=== PATIENT | male | born 1950 | race Caucasian/White ===

== ENCOUNTER → 2017-06-14 | Outpatient (CLI) | payer MEDICARE, OTHER ==
[~2017-06-14] MED LIST: ASPI-482 PO; ATOR10TA60 PO; CALC500T13 PO; CHOL200044 PO; FEBU40TA PO; FURO20TA3 PO; LANS30CA PO; LISI10TA2 PO; METO25TA4 PO; MYCO500T3 PO; SPIR50TA2 PO; TACR0.5C2 PO; TACR0.5P MC; TRAM50TA PO; TRIA0.2567 PO
[2017-06-14 08:25] LABS: BASO % 1 % (0-3); EOS # 0.2 x10^3/uL (0.0-0.7); EOS % 4 % (0-3); HEMATOCRIT 40.7 % (39.0-53.0); HEMOGLOBIN 13.3 g/dL (13.0-17.5); LYMPH # 0.7 x10^3/uL (1.0-4.8); LYMPH % 16 % (24-48); MEAN CORPUSCULAR HEMOGLOBIN 28 pg (25-35); MEAN CORPUSCULAR HGB CONC 33 g/dL (31-37); MEAN CORPUSCULAR VOLUME 85 fL (79-100); MONO # 0.4 x10^3/uL (0.0-1.1); MONO % 10 % (0-9); NEUT # 3.2 x10^3uL (1.8-7.7); NEUT % 70 % (31-73); PLATELET COUNT 95 x10^3/uL (140-400); RED BLOOD COUNT 4.78 x10^6/uL (4.30-5.70); RED CELL DISTRIBUTION WIDTH 15.3 % (11.5-14.5); WHITE BLOOD COUNT 4.5 x10^3/uL (4.0-11.0)
[2017-06-14 08:26] LABS: CALCIUM 9.2 mg/dL (8.5-10.1); GFR 74.8; POTASSIUM 3.9 mmol/L (3.5-5.1)
== END | disposition home or self-care (01) ==
LOC: LAB 07:30
PROVIDERS: ATTEND Internal Medicine Cardiovascular Disease
DX: Z01.812 Encounter for preprocedural laboratory examination (principal); I73.9 Peripheral vascular disease, unspecified; R93.6 Abnormal findings on diagnostic imaging of limbs
CPT/HCPCS: 36415; 80048; 85025

== ENCOUNTER → 2018-04-04 | Outpatient (CLI) | payer MEDICARE, OTHER ==
[~2018-04-04] MED LIST changes: -SPIR50TA2 PO; +SPIR50TA4 PO
[2018-04-04 11:54] LABS: BASO % 1 % (0-3); EOS # 0.1 x10^3/uL (0.0-0.7); EOS % 2 % (0-3); HEMATOCRIT 43.6 % (39.0-53.0); HEMOGLOBIN 14.2 g/dL (13.0-17.5); LYMPH # 0.8 x10^3/uL (1.0-4.8); LYMPH % 14 % (24-48); MEAN CORPUSCULAR HEMOGLOBIN 27 pg (25-35); MEAN CORPUSCULAR HGB CONC 33 g/dL (31-37); MEAN CORPUSCULAR VOLUME 84 fL (79-100); MONO # 0.5 x10^3/uL (0.0-1.1); MONO % 9 % (0-9); NEUT # 4.4 x10^3uL (1.8-7.7); NEUT % 74 % (31-73); PLATELET COUNT 114 x10^3/uL (140-400); RED BLOOD COUNT 5.22 x10^6/uL (4.30-5.70); RED CELL DISTRIBUTION WIDTH 14.6 % (11.5-14.5); WHITE BLOOD COUNT 5.9 x10^3/uL (4.0-11.0)
[2018-04-04 12:08] LABS: ALBUMIN 3.5 g/dL (3.4-5.0); ALBUMIN/GLOBULIN RATIO 0.9 (1.0-1.7); CALCIUM 8.9 mg/dL (8.5-10.1); GFR 74.5; MAGNESIUM 1.6 mg/dL (1.8-2.4); PHOSPHORUS 3.4 mg/dL (2.6-4.7); TOTAL PROTEIN 7.4 g/dL (6.4-8.2)
== END | disposition home or self-care (01) ==
LOC: LAB 10:00
PROVIDERS: ATTEND Internal Medicine Gastroenterology
DX: Z48.23 Encounter for aftercare following liver transplant (principal); Z94.4 Liver transplant status; Z79.899 Other long term (current) drug therapy
CPT/HCPCS: 36415; 80053; 80197; 82977; 83735; 84100; 85025

== ENCOUNTER → 2018-05-23 | Outpatient (CLI) | payer MEDICARE, OTHER ==
[2018-05-23 12:23] LABS: BASO % 0 % (0-3); EOS # 0.1 x10^3/uL (0.0-0.7); EOS % 1 % (0-3); HEMATOCRIT 41.8 % (39.0-53.0); HEMOGLOBIN 13.7 g/dL (13.0-17.5); LYMPH # 0.8 x10^3/uL (1.0-4.8); LYMPH % 15 % (24-48); MEAN CORPUSCULAR HEMOGLOBIN 27 pg (25-35); MEAN CORPUSCULAR HGB CONC 33 g/dL (31-37); MEAN CORPUSCULAR VOLUME 84 fL (79-100); MONO # 0.5 x10^3/uL (0.0-1.1); MONO % 8 % (0-9); NEUT # 4.2 x10^3uL (1.8-7.7); NEUT % 75 % (31-73); PLATELET COUNT 101 x10^3/uL (140-400); RED CELL DISTRIBUTION WIDTH 16.5 % (11.5-14.5); WHITE BLOOD COUNT 5.6 x10^3/uL (4.0-11.0)
[2018-05-23 12:29] LABS: ALBUMIN 3.6 g/dL (3.4-5.0); CALCIUM 8.7 mg/dL (8.5-10.1); GFR 74.5; MAGNESIUM 1.7 mg/dL (1.8-2.4); PHOSPHORUS 3.1 mg/dL (2.6-4.7); POTASSIUM 3.9 mmol/L (3.5-5.1); TOTAL BILIRUBIN 1.5 mg/dL (0.2-1.0); TOTAL PROTEIN 7.1 g/dL (6.4-8.2)
== END | disposition home or self-care (01) ==
LOC: LAB 11:24
PROVIDERS: ATTEND Internal Medicine Cardiovascular Disease
DX: Z48.23 Encounter for aftercare following liver transplant (principal); I25.10 Atherosclerotic heart disease of native coronary artery without angina pectoris; Z94.4 Liver transplant status
CPT/HCPCS: 36415; 80053; 80197; 82977; 83735; 84100; 85025

== ENCOUNTER → 2018-09-20 | Outpatient (CLI) | payer MEDICARE, OTHER ==
[2018-09-21 01:11] LABS: MICRO CREAT RATIO 2.4 mg/g creat (0.0-30.0); MICROALB RD UR 3.8 ug/mL (Not Estab.)
== END | disposition home or self-care (01) ==
LOC: LAB 08:30
PROVIDERS: ATTEND Internal Medicine Endocrinology, Diabetes & Metabolism
DX: E11.65 Type 2 diabetes mellitus with hyperglycemia (principal)
CPT/HCPCS: 36415; 82043; 82570

== ENCOUNTER → 2018-09-27 | Outpatient (CLI) | payer MEDICARE, OTHER | END | disposition home or self-care (01) | LOC: SURG 10:24 | PROVIDERS: ATTEND Anesthesiology | DX: M54.16 Radiculopathy, lumbar region (principal); K21.9 Gastro-esophageal reflux disease without esophagitis; E11.9 Type 2 diabetes mellitus without complications; Z79.891 Long term (current) use of opiate analgesic; Z79.899 Other long term (current) drug therapy | CPT/HCPCS: 99203 ==

== ENCOUNTER → 2018-11-25 | Outpatient (CLI) | payer MEDICARE, OTHER ==
[2018-11-25 09:45] LABS: BASO % 0 % (0-3); EOS # 0.1 x10^3/uL (0.0-0.7); EOS % 1 % (0-3); HEMATOCRIT 37.9 % (39.0-53.0); HEMOGLOBIN 12.8 g/dL (13.0-17.5); LYMPH # 0.7 x10^3/uL (1.0-4.8); LYMPH % 14 % (24-48); MEAN CORPUSCULAR HEMOGLOBIN 29 pg (25-35); MEAN CORPUSCULAR HGB CONC 34 g/dL (31-37); MEAN CORPUSCULAR VOLUME 85 fL (79-100); MONO # 0.4 x10^3/uL (0.0-1.1); MONO % 8 % (0-9); NEUT # 4.1 x10^3uL (1.8-7.7); NEUT % 77 % (31-73); PLATELET COUNT 95 x10^3/uL (140-400); RED BLOOD COUNT 4.45 x10^6/uL (4.30-5.70); RED CELL DISTRIBUTION WIDTH 14.7 % (11.5-14.5); WHITE BLOOD COUNT 5.3 x10^3/uL (4.0-11.0)
[2018-11-25 10:07] LABS: ALBUMIN 3.4 g/dL (3.4-5.0); ALBUMIN/GLOBULIN RATIO 0.9 (1.0-1.7); C REACTIVE PROTEIN 6.6 mg/L (0-3.3); CALCIUM 8.8 mg/dL (8.5-10.1); CREATININE 1.1 mg/dL (0.7-1.3); GFR 66.6; MAGNESIUM 1.7 mg/dL (1.8-2.4); POTASSIUM 3.9 mmol/L (3.5-5.1); TOTAL BILIRUBIN 0.8 mg/dL (0.2-1.0); URIC ACID 6.5 mg/dL (3.5-7.2)
[2018-11-25 14:26] LABS: THYROID STIM HORMONE (TSH) 0.954 uIU/mL (0.358-3.740)
== END | disposition home or self-care (01) ==
LOC: LAB 08:01
PROVIDERS: ATTEND Internal Medicine
DX: Z13.29 Encounter for screening for other suspected endocrine disorder (principal); E78.00 Pure hypercholesterolemia, unspecified; E55.9 Vitamin D deficiency, unspecified
CPT/HCPCS: 36415; 80053; 80061; 82306; 82550; 83695; 83735; 84443; 84550; 85025; 85384; 86140

== ENCOUNTER → 2019-04-04 | Outpatient (CLI) | payer MEDICARE, OTHER ==
--- NOTE | 2019-04-04 13:30 | RAD ---
Bilateral lower extremity venous duplex study 04/04/2019 11:00 AM Clinical History: Left lower extremity pain and edema Technique: Using a combination of real time ultrasound imaging and color-flow and pulse Doppler imaging techniques along with graded compression and augmentation, duplex evaluation of the deep venous system of the both lower extremities was performed. Multiple images were obtained. Findings: There is no sonographic evidence of deep venous thrombosis involving the visualized deep venous structures of either lower extremity. Impression: No evidence of deep venous thrombosis Electronically signed by: Dougie Mckeon MD (04/04/2019 1:27 PM) [id number]
== END | disposition home or self-care (01) ==
LOC: US 10:37
PROVIDERS: ATTEND Family Medicine
DX: I73.89 Other specified peripheral vascular diseases (principal)
CPT/HCPCS: 93970

== ENCOUNTER → 2019-08-29 | Outpatient (CLI) | payer MEDICARE, OTHER ==
[2019-08-29 09:35] LABS: BASO % 1 % (0-3); EOS # 0.1 x10^3/uL (0.0-0.7); EOS % 2 % (0-3); HEMATOCRIT 39.3 % (39.0-53.0); HEMOGLOBIN 12.9 g/dL (13.0-17.5); LYMPH # 0.9 x10^3/uL (1.0-4.8); LYMPH % 16 % (24-48); MEAN CORPUSCULAR HEMOGLOBIN 28 pg (25-35); MEAN CORPUSCULAR HGB CONC 33 g/dL (31-37); MEAN CORPUSCULAR VOLUME 86 fL (79-100); MONO # 0.5 x10^3/uL (0.0-1.1); MONO % 8 % (0-9); NEUT % 73 % (31-73); PLATELET COUNT 86 x10^3/uL (140-400); RED BLOOD COUNT 4.59 x10^6/uL (4.30-5.70); RED CELL DISTRIBUTION WIDTH 15.3 % (11.5-14.5); WHITE BLOOD COUNT 5.5 x10^3/uL (4.0-11.0)
[2019-08-29 09:45] LABS: ALBUMIN 3.6 g/dL (3.4-5.0); ALBUMIN/GLOBULIN RATIO 0.9 (1.0-1.7); CALCIUM 8.8 mg/dL (8.5-10.1); GFR 74.3; POTASSIUM 3.7 mmol/L (3.5-5.1); TOTAL BILIRUBIN 1.3 mg/dL (0.2-1.0); TOTAL PROTEIN 7.4 g/dL (6.4-8.2)
== END | disposition home or self-care (01) ==
LOC: LAB 08:13
PROVIDERS: ATTEND Internal Medicine Gastroenterology
DX: Z94.4 Liver transplant status (principal)
CPT/HCPCS: 36415; 80053; 80197; 85025

== ENCOUNTER → 2019-09-18 | Outpatient (CLI) | payer MEDICARE, OTHER ==
[~2019-09-18] MED LIST changes: -CALC500T13 PO; +CALC500T14 PO
[2019-09-18 11:11] LABS: BASO % 0 % (0-3); EOS # 0.1 x10^3/uL (0.0-0.7); EOS % 1 % (0-3); LYMPH # 0.6 x10^3/uL (1.0-4.8); LYMPH % 16 % (24-48); MEAN CORPUSCULAR HEMOGLOBIN 28 pg (25-35); MEAN CORPUSCULAR HGB CONC 32 g/dL (31-37); MEAN CORPUSCULAR VOLUME 86 fL (79-100); MONO # 0.4 x10^3/uL (0.0-1.1); MONO % 9 % (0-9); NEUT % 74 % (31-73); PLATELET COUNT 83 x10^3/uL (140-400); RED BLOOD COUNT 4.29 x10^6/uL (4.30-5.70); RED CELL DISTRIBUTION WIDTH 15.3 % (11.5-14.5); WHITE BLOOD COUNT 4.1 x10^3/uL (4.0-11.0)
[2019-09-18 11:34] LABS: ALBUMIN 3.3 g/dL (3.4-5.0); ALBUMIN/GLOBULIN RATIO 0.9 (1.0-1.7); CALCIUM 8.9 mg/dL (8.5-10.1); CREATININE 1.2 mg/dL (0.7-1.3); POTASSIUM 3.6 mmol/L (3.5-5.1); TOTAL BILIRUBIN 1.1 mg/dL (0.2-1.0)
== END ==
LOC: LAB 10:01
PROVIDERS: ATTEND Internal Medicine Gastroenterology
DX: Z94.4 Liver transplant status (principal)
CPT/HCPCS: 36415; 80053; 80197; 85025

== ENCOUNTER → 2020-08-19 | Outpatient (CLI) | payer MEDICARE, OTHER ==
[~2020-08-19] MED LIST changes: +LISI10TA16 PO; -LISI10TA2 PO
[2020-08-19 09:40] LABS: BASO % 0 % (0-3); EOS # 0.1 x10^3/uL (0.0-0.7); EOS % 1 % (0-3); HEMATOCRIT 40.9 % (39.0-53.0); HEMOGLOBIN 13.5 g/dL (13.0-17.5); LYMPH # 0.9 x10^3/uL (1.0-4.8); LYMPH % 15 % (24-48); MEAN CORPUSCULAR HEMOGLOBIN 28 pg (25-35); MEAN CORPUSCULAR HGB CONC 33 g/dL (31-37); MEAN CORPUSCULAR VOLUME 84 fL (79-100); MONO # 0.4 x10^3/uL (0.0-1.1); MONO % 8 % (0-9); NEUT # 4.4 x10^3uL (1.8-7.7); NEUT % 76 % (31-73); PLATELET COUNT 86 x10^3/uL (140-400); RED BLOOD COUNT 4.87 x10^6/uL (4.30-5.70); RED CELL DISTRIBUTION WIDTH 16.3 % (11.5-14.5); WHITE BLOOD COUNT 5.8 x10^3/uL (4.0-11.0)
[2020-08-19 09:45] LABS: ALBUMIN 3.4 g/dL (3.4-5.0); ALBUMIN/GLOBULIN RATIO 0.9 (1.0-1.7); CALCIUM 8.2 mg/dL (8.5-10.1); CREATININE 1.2 mg/dL (0.7-1.3); MAGNESIUM 1.9 mg/dL (1.8-2.4); POTASSIUM 3.6 mmol/L (3.5-5.1); TOTAL PROTEIN 7.1 g/dL (6.4-8.2)
[2020-08-19 19:09] LABS: AFPT MARKER 2.8 ng/mL (0.0-8.3)
[2020-08-21 18:35] LABS: CREATININE,RANDOM URINE 45.7 mg/dL (Not Establ.)
== END ==
LOC: LAB 08:39
PROVIDERS: ATTEND Internal Medicine Gastroenterology
DX: K74.60 Unspecified cirrhosis of liver (principal); Z94.4 Liver transplant status; Z79.899 Other long term (current) drug therapy; Z86.39 Personal history of other endocrine, nutritional and metabolic disease; Z13.220 Encounter for screening for lipoid disorders; Z94.0 Kidney transplant status
CPT/HCPCS: 36415; 80053; 80061; 80197; 82105; 82306; 82570; 83735; 84156; 85025

== ENCOUNTER → 2020-09-18 | Outpatient (CLI) | payer MEDICARE, OTHER ==
[2020-09-18 10:05] LABS: BASO % 1 % (0-3); EOS # 0.1 x10^3/uL (0.0-0.7); EOS % 2 % (0-3); HEMATOCRIT 40.6 % (39.0-53.0); HEMOGLOBIN 13.5 g/dL (13.0-17.5); LYMPH % 18 % (24-48); MEAN CORPUSCULAR HEMOGLOBIN 28 pg (25-35); MEAN CORPUSCULAR HGB CONC 33 g/dL (31-37); MEAN CORPUSCULAR VOLUME 84 fL (79-100); MONO # 0.5 x10^3/uL (0.0-1.1); MONO % 9 % (0-9); NEUT % 71 % (31-73); PLATELET COUNT 93 x10^3/uL (140-400); RED BLOOD COUNT 4.84 x10^6/uL (4.30-5.70); RED CELL DISTRIBUTION WIDTH 15.9 % (11.5-14.5); WHITE BLOOD COUNT 5.7 x10^3/uL (4.0-11.0)
[2020-09-18 11:22] LABS: ALBUMIN 3.6 g/dL (3.4-5.0); CALCIUM 8.6 mg/dL (8.5-10.1); CREATININE 1.1 mg/dL (0.7-1.3); GFR 66.2; MAGNESIUM 1.7 mg/dL (1.8-2.4); POTASSIUM 3.4 mmol/L (3.5-5.1); TOTAL BILIRUBIN 1.4 mg/dL (0.2-1.0); TOTAL PROTEIN 7.2 g/dL (6.4-8.2)
== END ==
LOC: LAB 09:02
PROVIDERS: ATTEND Internal Medicine Gastroenterology
DX: Z79.899 Other long term (current) drug therapy (principal); Z94.4 Liver transplant status
CPT/HCPCS: 80053; 80197; 83735; 85025

== ENCOUNTER → 2020-10-16 | Outpatient (CLI) | payer MEDICARE, OTHER ==
[2020-10-16 12:30] LABS: BASO % 0 % (0-3); EOS % 1 % (0-3); HEMATOCRIT 41.6 % (39.0-53.0); HEMOGLOBIN 13.5 g/dL (13.0-17.5); LYMPH # 0.6 x10^3/uL (1.0-4.8); LYMPH % 9 % (24-48); MEAN CORPUSCULAR HEMOGLOBIN 28 pg (25-35); MEAN CORPUSCULAR HGB CONC 33 g/dL (31-37); MEAN CORPUSCULAR VOLUME 84 fL (79-100); MONO # 0.5 x10^3/uL (0.0-1.1); MONO % 8 % (0-9); NEUT # 5.7 x10^3uL (1.8-7.7); NEUT % 82 % (31-73); PLATELET COUNT 94 x10^3/uL (140-400); RED BLOOD COUNT 4.93 x10^6/uL (4.30-5.70); RED CELL DISTRIBUTION WIDTH 15.5 % (11.5-14.5); WHITE BLOOD COUNT 6.9 x10^3/uL (4.0-11.0)
[2020-10-16 12:54] LABS: ALBUMIN 3.4 g/dL (3.4-5.0); ALBUMIN/GLOBULIN RATIO 0.9 (1.0-1.7); CALCIUM 8.8 mg/dL (8.5-10.1); GFR 73.9; POTASSIUM 4.1 mmol/L (3.5-5.1); TOTAL BILIRUBIN 1.1 mg/dL (0.2-1.0); TOTAL PROTEIN 7.1 g/dL (6.4-8.2)
== END ==
LOC: LAB 11:43
PROVIDERS: ATTEND Internal Medicine Gastroenterology
DX: Z79.899 Other long term (current) drug therapy (principal); Z94.4 Liver transplant status
CPT/HCPCS: 80053; 80197; 83735; 85025

== ENCOUNTER 2020-10-21 14:05 | Inpatient (IN) | payer MEDICARE, OTHER ==
[~2020-10-21] VITALS: Ht 180.3 cm; Wt 119.5 kg
--- NOTE | 2020-10-21 14:28 | EKG ---
[address] [address] Test Date: 2020-10-21 Test Time: 14:05:50 Pat Name: STACI HALEY Department: Room: Gender: M Aged Or Disabled Care Worker: BERONICA : 1950 Requested By: COTY MEJIA Order Number: [id number] Reading MD: Measurements Intervals Catarina Rate: 98 P: IA: QRS: -3 QRSD: 96 T: 56 QT: 336 QTc: 431 Interpretive Statements IRREGULAR RHYTHM, NO P-WAVE FOUND LEFTWARD AXIS R-S TRANSITION ZONE IN V LEADS DISPLACED TO THE LEFT LOW LIMB LEAD VOLTAGE T ABNORMALITY IN HIGH LATERAL LEADS ABNORMAL ECG RI6.02 No previous ECG available for comparison
[2020-10-21] MEDS ORDERED: ASPIRIN 325 MG TABLET PO ONE (14:30)
[2020-10-21 14:44] LABS: BASO % 1 % (0-3); EOS % 0 % (0-3); HEMATOCRIT 43.1 % (39.0-53.0); HEMOGLOBIN 14.1 g/dL (13.0-17.5); LYMPH # 0.8 x10^3/uL (1.0-4.8); LYMPH % 9 % (24-48); MEAN CORPUSCULAR HEMOGLOBIN 28 pg (25-35); MEAN CORPUSCULAR HGB CONC 33 g/dL (31-37); MEAN CORPUSCULAR VOLUME 85 fL (79-100); MONO # 0.7 x10^3/uL (0.0-1.1); MONO % 8 % (0-9); NEUT # 7.3 x10^3uL (1.8-7.7); NEUT % 83 % (31-73); PLATELET COUNT 94 x10^3/uL (140-400); RED BLOOD COUNT 5.08 x10^6/uL (4.30-5.70); RED CELL DISTRIBUTION WIDTH 16.4 % (11.5-14.5); WHITE BLOOD COUNT 8.8 x10^3/uL (4.0-11.0)
[2020-10-21] MEDS ORDERED: dilTIAZem VIAL 125 MG in IV NORMAL SALINE 100ML 100 ML IV PRN (15:15)
[2020-10-21] MEDS ORDERED: dilTIAZem 25 MG/5 ML VIAL IVP ONE (15:15)
[2020-10-21 15:18] LABS: CALCIUM 8.7 mg/dL (8.5-10.1); CREATININE 1.5 mg/dL (0.7-1.3); GFR 46.3; POTASSIUM 4.2 mmol/L (3.5-5.1)
[2020-10-21 15:33] LABS: ALBUMIN 3.6 g/dL (3.4-5.0); ALBUMIN/GLOBULIN RATIO 1.1 (1.0-1.7); TOTAL BILIRUBIN 1.5 mg/dL (0.2-1.0)
--- NOTE | 2020-10-21 15:44 | RAD ---
XR CHEST 1V 10/21/2020 3:23 PM INDICATION: Chest pain COMPARISON: 08/10/2013 TECHNIQUE: Portable frontal view of the chest is provided. FINDINGS: The cardiomediastinal silhouette is enlarged. Median sternotomy changes are present. Mild to moderate pulmonary vascular congestion. There is widening of superior mediastinum which may be suggestive of fluid overload. There may be tortuosity or ectasia of the thoracic aorta. No pleural effusions or pneumothorax. No suspicious osseous abnormality. IMPRESSION: Constellation of findings suggestive of mild to moderate congestive heart failure. There is widening of superior mediastinum which may be suggestive of fluid overload. There may be tortuosity or ectasia of the thoracic aorta. Electronically signed by: Claire Gates MD (10/21/2020 3:42 PM) [id number]
[2020-10-21 15:50] LABS: BILIRUBIN,URINE NEG (NEG); CLARITY,URINE CLEAR; COLOR,URINE AMBER; GLUCOSE,URINE 500 mg/dL (NEG); NITRITE,URINE NEG (NEG); UROBILINOGEN,URINE 0.2 mg/dL (0.2 mg/dL)
[2020-10-21 15:51] LABS: BACTERIA,URINE 0 /HPF (0-FEW); RBC,URINE 0 /HPF (0-2); WBC,URINE 0 /HPF (0-4)
--- NOTE | 2020-10-21 15:56 | PHYS DOC ---
Past History Past Medical History: A-Fib, High Cholesterol, Hypertension, IA, Other Past Surgical History: Appendectomy, Knee Replacement, Other Additional Past Surgical Histo: liver transplant, Heart valves Past Surgical History Cardiac ablation Smoking: Non-smoker Alcohol Use: None Drug Use: None General Adult EDM: Chief Complaint: CHEST PAIN HPI: HPI: 70-year-old male with significant cardiac history including prior IA and valve replacement presents with report of palpitations and chest pain which occurred earlier today. Patient does report some dyspnea with exertion. Reports he becomes diaphoretic at that time. Denies any nausea or vomiting. Denies increased leg swelling or calf tenderness. Patient reports he is currently being treated with Eliquis and an 81mg ASA at night. Denies trauma. Review of Systems: Review of Systems: Constitutional: Denies fever or chills Eyes: Denies redness or eye pain HENT: Denies nasal congestion or sore throat Respiratory: Denies cough or shortness of breath Cardiovascular: Reports chest pain and palpitations GI: Denies abdominal pain, nausea, or vomiting : Denies dysuria or hematuria Musculoskeletal: Denies back pain or joint pain Integument: Denies rash or skin lesions Neurologic: Denies headache, focal weakness or sensory changes Complete systems were reviewed and found to be within normal limits, except as documented in this note. Current Medications: Current Meds: Current Medications Medications (Trade) Dose Ordered Sig/Oscar Start Time Stop Time Status Last Admin Dose Admin Aspirin (Matthew Aspirin) 325 mg 1X ONCE 10/21/20 14:30 10/21/20 14:32 DC 10/21/20 14:38 325 MG Diltiazem HCl (Cardizem Iv Push) 10 mg 1X ONCE 10/21/20 15:15 10/21/20 15:16 DC 10/21/20 15:15 10 MG Diltiazem HCl 125 mg/Sodium Chloride 125 ml @ 5 mls/hr CONT PRN 10/21/20 15:15 Allergies: Allergies: Allergies Coded Allergies Type Severity Reaction Last Updated Verified ciprofloxacin Allergy Intermediate RASH 08/12/13 Yes Physical Exam: PE: Constitutional: Well developed, well nourished, no acute distress, non-toxic appearance HENT: Normocephalic, atraumatic Eyes: Conjunctiva normal, no discharge Neck: Normal range of motion, supple Lungs & Thorax: No respiratory distress, equal chest rise and fall Cardiovascular: Irregularly irregular rhythm Abdomen: Soft, no tenderness Skin: Warm, dry, no erythema, no rash Extremities: No tenderness, ROM intact, no edema Neurologic: Alert and oriented X 3, no focal deficits noted Psychologic: Affect normal, judgment normal Current Patient Data: Labs: Laboratory Tests Test 10/21/20 14:23 White Blood Count 8.8 x10^3/uL (4.0-11.0) Red Blood Count 5.08 x10^6/uL (4.30-5.70) Hemoglobin 14.1 g/dL (13.0-17.5) Hematocrit 43.1 % (39.0-53.0) Mean Corpuscular Volume 85 fL (79-100) Mean Corpuscular Hemoglobin 28 pg (25-35) Mean Corpuscular Hemoglobin Concent 33 g/dL (31-37) Red Cell Distribution Width 16.4 % (11.5-14.5) H Platelet Count 94 x10^3/uL (140-400) L Neutrophils (%) (Auto) 83 % (31-73) H Lymphocytes (%) (Auto) 9 % (24-48) L Monocytes (%) (Auto) 8 % (0-9) Eosinophils (%) (Auto) 0 % (0-3) Basophils (%) (Auto) 1 % (0-3) Neutrophils # (Auto) 7.3 x10^3uL (1.8-7.7) Lymphocytes # (Auto) 0.8 x10^3/uL (1.0-4.8) L Monocytes # (Auto) 0.7 x10^3/uL (0.0-1.1) Eosinophils # (Auto) 0.0 x10^3/uL (0.0-0.7) Basophils # (Auto) 0.0 x10^3/uL (0.0-0.2) Sodium Level 140 mmol/L (136-145) Potassium Level 4.2 mmol/L (3.5-5.1) Chloride Level 103 mmol/L (98-107) Carbon Dioxide Level 28 mmol/L (21-32) Anion Gap 9 (6-14) Blood Urea Nitrogen 26 mg/dL (8-26) Creatinine 1.5 mg/dL (0.7-1.3) H Estimated GFR (Cockcroft-Gault) 46.3 BUN/Creatinine Ratio 17 (6-20) Glucose Level 249 mg/dL (70-99) H Calcium Level 8.7 mg/dL (8.5-10.1) Magnesium Level 2.0 mg/dL (1.8-2.4) Total Bilirubin 1.5 mg/dL (0.2-1.0) H Aspartate Amino Transferase (AST) 36 U/L (15-37) Alanine Aminotransferase (ALT) 43 U/L (16-63) Alkaline Phosphatase 196 U/L (46-116) H Creatine Kinase 54 U/L (39-308) Creatine Kinase MB (Mass) 1.2 ng/mL (0.0-3.6) Creatine Kinase MB Relative Index 2.2 % (0-4) Troponin I Quantitative < 0.017 ng/mL (0-0.055) UT-Vti-S-Type Natriuretic Peptide 427 pg/mL (0-124) H Total Protein 7.0 g/dL (6.4-8.2) Albumin 3.6 g/dL (3.4-5.0) Albumin/Globulin Ratio 1.1 (1.0-1.7) Lipase 163 U/L (73-393) Vital Signs: Vital Signs Date Time Temp Pulse Resp B/P (MAP) Pulse Ox O2 Delivery O2 Flow Rate FiO2 10/21/20 15:15 101 116/80 10/21/20 14:16 98.7 20 96 Room Air EKG: EKG: @1405 Afib at 98bpm, NO ST elevation, hyperacute t waves to V2-V5, QRS 96ms, QT/QTc 336/431ms, compared to prior EKG from 08/11/2013 which noted NSR at 63bpm, t waves appear similar Radiology/Procedures: Radiology/Procedures: PROCEDURE: CHEST AP ONLY XR CHEST 1V 10/21/2020 3:23 PM INDICATION: Chest pain COMPARISON: 08/10/2013 TECHNIQUE: Portable frontal view of the chest is provided. FINDINGS: The cardiomediastinal silhouette is enlarged. Median sternotomy changes are present. Mild to moderate pulmonary vascular congestion. There is widening of superior mediastinum which may be suggestive of fluid overload. There may be tortuosity or ectasia of the thoracic aorta. No pleural effusions or pneumothorax. No suspicious osseous abnormality. IMPRESSION: Constellation of findings suggestive of mild to moderate congestive heart failure. There is widening of superior mediastinum which may be suggestive of fluid overload. There may be tortuosity or ectasia of the thoracic aorta. Electronically signed by: Claire Gates MD (10/21/2020 3:42 PM) [id number] Heart Score: C/O Chest Pain: Yes HEART Score for Chest Pain: HEART Score for Chest Pain Response (Comments) Value History Moderately Suspicious 1 ECG Nonspecific Repolarizatio 1 Age > 65 2 Risk Factors >3 Risk Factors or Hx CAD 2 Troponin < Normal Limit 0 Total 6 Risk Factors: Risk Factors: DM, Current or recent (<one month) smoker, HTN, HLP, family history of CAD, obesity. Risk Scores: Score 0 - 3: 2.5% MACE over next 6 weeks - Discharge Home Score 4 - 6: 20.3% MACE over next 6 weeks - Admit for Clinical Observation Score 7 - 10: 72.7% MACE over next 6 weeks - Early Invasive Strategies Course & Med Decision Making: Course & Med Decision Making Pertinent Labs and Imaging studies reviewed. (See chart for details) Patient presents with palpitations and chest pain which started today. Patient does have a history of A. fib for which he has undergone cardiac ablation. Patient also with significant cardiac risk factors including prior IA, hyperten javier, and high cholesterol. EKG with concern for A. fib. Telemetry monitoring noting patient going between high 80s to 120s bpm. Concern for A. fib RVR. Cardizem bolus and drip initiated. Aspirin provided. Labs obtained and posted to chart. Initial troponin within normal limits. Chest x-ray obtained which question some possible vascular congestion (BNP minimally elevated). HEART score 6. Patient requiring admission for further evaluation and treatment. Discussed with Dr. Jones (PCP) who is in agreement with admission. Order for cardiology consultation. Discussed findings and plan with patient and spouse, who acknowle dge understanding and agreement. Thelma Disclaimer: Thelma Disclaimer: This electronic medical record was generated, in whole or in part, using a voice recognition dictation system. Departure Departure: Impression: Primary Impression: Atrial fibrillation with rapid ventricular response Additional Impression: Chest pain Qualified Codes: R07.9 - Chest pain, unspecified Disposition: ADMITTED INPATIENT Admitting Physician: Yves Whitfield Condition: GUARDED Referrals: YVES WHITFIELD MD (PCP) Critical Care Time Critical care time was 30 minutes which includes time at bedside, spent in discussion of patient's care with specialists and/or family members, with interpretation of laboratory and/or radiological studies and is exclusive of procedures. COTY MEJIA DO Oct 21, 2020 15:56
[2020-10-21] MEDS ORDERED: ONDANSETRON PF 4 MG/2 ML VIAL. IVP PRN (16:00)
[2020-10-21] MEDS ORDERED: INSU100V SQ ×2 (17:42)
[2020-10-21] MEDS ORDERED: INSU100V13 SQ (17:42)
[2020-10-21] MEDS ORDERED: DEXTROSE 50% 25 GM / 50ML DISP.SYRIN. IV PRN (17:45)
[2020-10-21] MEDS: INSULIN LISPRO 300 UNITS/3 ML VIAL. SQ SCH ×2 (17:49→17:50)
[2020-10-21 17:59] VITALS: BP 119/71
--- NOTE | 2020-10-21 18:30 | NUR ---
pt admitted from ed to icu room 1. pt not currently on cardizem drip, HR in the 80s afib. Pt ambulatory in room. med list obtained and entered. dr greenwood called for orders
[2020-10-21] MEDS ORDERED: OMEP40CA7 PO (18:42)
[2020-10-21] MEDS ORDERED: FEBU40TA PO (18:42)
[2020-10-21] MEDS ORDERED: LOSA50TA86 PO (18:42)
[2020-10-21] MEDS ORDERED: FLUO15CR TP (18:42)
[2020-10-21] MEDS ORDERED: POTA20TA4 PO (18:42)
[2020-10-21] MEDS ORDERED: MAGN400T44 PO (18:42)
[2020-10-21] MEDS ORDERED: TRIA15OI TP (18:42)
[2020-10-21] MEDS ORDERED: APIX5TAB3 PO (18:42)
[2020-10-21] MEDS ORDERED: NITR0.4T24 SL (18:42)
[2020-10-21] MEDS ORDERED: FENT1PAT15 TP (18:42)
[2020-10-21] MEDS ORDERED: FURO-68 PO (18:42)
[2020-10-21] MEDS ORDERED: KETO120S4 TP (18:42)
[2020-10-21] MEDS ORDERED: TRAM50TA PO (18:42)
[2020-10-21] MEDS ORDERED: ISOS30TA68 PO (18:42)
[2020-10-21] MEDS ORDERED: EMPA10TA PO (18:42)
[2020-10-21] MEDS ORDERED: DICL100G28 TP (18:42)
[2020-10-21] MEDS ORDERED: VIT1CAPS7 PO (18:42)
[2020-10-21] MEDS ORDERED: MULT-245 PO (18:42)
[2020-10-21] MEDS ORDERED: CLIN60LO TP (18:42)
[2020-10-21] MEDS ORDERED: METO50TA29 PO (18:42)
[2020-10-21] MEDS ORDERED: PRED-220 PO (18:42)
[2020-10-21] MEDS ORDERED: CRESTOR5 MG PO (18:42)
[2020-10-21] MEDS ORDERED: NITROGLYCERIN SUBLINGUAL 0.4 MG BOTTLE OF 25. SL PRN (19:00)
[2020-10-21] MEDS ORDERED: traMADol 50 MG TABLET PO PRN (19:00)
[2020-10-21] MEDS ORDERED: DICLOFENAC SODIUM 1% TOPICAL GEL 100GM TUBE. TP PRN (19:00)
[2020-10-21 19:49] VITALS: BP 107/58
[2020-10-21 20:00] VITALS: BP 105/56
[2020-10-21] MEDS ORDERED: fentaNYL 25MCG/HR 1 PATCH PATCH TD PRN (20:00)
[2020-10-21] MEDS: MYCOPHENOLATE MOFETIL 250 MG CAPSULE PO SCH (20:59)
[2020-10-21] MEDS: APIXABAN 5 MG TABLET. PO SCH (20:59)
[2020-10-21] MEDS: TACROLIMUS 1 MG CAPSULE PO SCH (20:59)
[2020-10-21] MEDS: INSULIN GLARGINE SYRINGE. SQ SCH (21:00)
[2020-10-21] MEDS ORDERED: NON FORMULARY ITEM (Insulin Detemir (Levemir) 12 UNIT) SQ SCH (21:00)
[2020-10-21] MEDS: TRIAMCINOLONE ACETONIDE 0.1% TOPICAL OINTMENT 15GM TUBE. TP SCH (21:00)
[2020-10-21 22:54] VITALS: BP 101/47
[2020-10-22] VITALS (10 sets, daily range): BP systolic 92–139; BP diastolic 47–75
[2020-10-22] MEDS ORDERED: fentaNYL 25MCG/HR 1 PATCH PATCH TD PRN (07:45)
[2020-10-22] MEDS: INSULIN LISPRO 300 UNITS/3 ML VIAL. SQ SCH ×6 (08:00→17:38)
[2020-10-22] MEDS ORDERED: INSULIN LISPRO 7 UNIT SQ SCH (08:00)
[2020-10-22] MEDS: ISOSORBIDE MONONITRATE ER 30 MG TAB.ER.24H PO SCH (08:10)
[2020-10-22] MEDS: EMPAGLIFLOZIN 10 MG TABLET. PO SCH (08:10)
[2020-10-22] MEDS: CALCIUM CARBONATE 500 MG TABLET PO SCH (08:10)
[2020-10-22] MEDS: APIXABAN 5 MG TABLET. PO SCH (08:11)
[2020-10-22] MEDS: MULTIVITAMIN with MINERAL TABLET. PO SCH (08:11)
[2020-10-22] MEDS: LOSARTAN 50 MG TABLET. PO SCH (08:11)
[2020-10-22] MEDS: predniSONE 10 MG TABLET. PO SCH (08:11)
[2020-10-22] MEDS: TACROLIMUS 1 MG CAPSULE PO SCH ×2 (08:11→21:51)
[2020-10-22] MEDS: ASPIRIN ENTERIC COATED 81 MG TABLET.DR. PO SCH (08:12)
[2020-10-22] MEDS: PANTOPRAZOLE 40 MG TABLET. PO SCH (08:12)
[2020-10-22] MEDS: POTASSIUM CHLORIDE 20 MEQ TABLET.ER. PO SCH (08:12)
[2020-10-22] MEDS: FUROSEMIDE 40 MG TABLET PO SCH (08:12)
[2020-10-22] MEDS: MYCOPHENOLATE MOFETIL 250 MG CAPSULE PO SCH ×2 (08:13→21:51)
[2020-10-22] MEDS: MAGNESIUM OXIDE 400 MG TABLET PO SCH (08:13)
[2020-10-22] MEDS: TRIAMCINOLONE ACETONIDE 0.1% TOPICAL OINTMENT 15GM TUBE. TP SCH ×2 (08:17→21:52)
[2020-10-22] MEDS: METOPROLOL SUCC 24HR ER 50 MG TAB.ER.24H. PO SCH (08:17)
[2020-10-22] MEDS: FEBUXOSTAT 40 MG TABLET PO SCH (08:17)
--- NOTE | 2020-10-22 08:22 | PDOC2 ---
TAL KAUFFMAN MONOMER RECOVERY SUPERVISOR 10/22/20 0822: CARDIAC CONSULT DATE OF CONSULT DOS: DATE: 10/22/20 TIME: 08:19 REASON FOR CONSULT Reason for Consult AFIB with RVR Chest pain REFERRING PHYSICIAN Referring Physician Dr. Becerra SOURCE Source: Chart review, Patient HPI History of Present Illness This is a 70 yo male who presented secondary to palpitations and chest pressure. Patient reports he developed central chest pressure following lunch yesterday. Was associated with shortness of breathing, diaphoresis, and nausea. Pain did not radiate. Initially thought pain was GERD related so he took a couple of Tums without relief. Pain became more intense so he took 2 nitro which improved his pain. Due to nature of pain and risk factors, he came to the ED for further evaluation and treatment. Pain returned early this morning. Was similar to what he experienced yesterday, but less intense. Pain was again improve with nitro. Plan was to transfer to for [facility], but full and unable to take transfers. Primary requested be be transferred to [facility] for further evaluation and treatment. He was noted in AFIB upon arrival to the ED. PAST MEDICAL HISTORY Cardiovascular: AFIB (s/p ablation ), CAD, CHF, HTN, hyperipidemia, aortic stenosis, Other (PAD ) Pulmonary: Other (TALIA) GI: GERD Hepatobiliary: Cirrhosis Musculoskeletal: Osteoarthritis Rheumatologic: Gout Renal/: Chronic renal insuff Endocrine: Diabetes PAST SURGICAL HISTORY Past Surgical History: Total knee replacement (right ), Other (liver transplant, bioprosthetic aortic valve replacement ) FAMILY HISTORY Family History: Hypertension SOCIAL HISTORY Smoke: Quit ALCOHOL: occassional Drugs: None CURRENT MEDICATIONS Current Medications Current Medications Aspirin (Matthew Aspirin) 325 mg 1X ONCE PO Last administered on 10/21/20at 14:38; Start 10/21/20 at 14:30; Stop 10/21/20 at 14:32; Status DC Diltiazem HCl (Cardizem Iv Push) 10 mg 1X ONCE IVP Last administered on 10/21/20at 15:15; Start 10/21/20 at 15:15; Stop 10/21/20 at 15:16; Status DC Diltiazem HCl 125 mg/Sodium Chloride 125 ml @ 5 mls/hr CONT PRN IV SEE I/O RECORD; Start 10/21/20 at 15:15 Ondansetron HCl (Zofran) 4 mg PRN Q4HRS PRN IVP NAUSEA/VOMITING; Start 10/21/20 at 16:00; Stop 10/22/20 at 15:59 Fentanyl Citrate (Fentanyl 2ml Vial) 50 mcg PRN Q2HR PRN IVP PAIN; Start 10/21/20 at 16:00; Stop 10/22/20 at 15:59 Insulin Glargine (Lantus Syringe) 12 unit QHS SQ Last administered on 10/21/20at 21:00; Start 10/21/20 at 21:00 Insulin Human Lispro (HumaLOG) 0-7 UNITS TIDWMEALS SQ Last administered on 10/21/20at 17:50; Start 10/21/20 at 17:45 Dextrose (Dextrose 50%-Water Syringe) 12.5 gm PRN Q15MIN PRN IV SEE COMMENTS; Start 10/21/20 at 17:45 Insulin Human Lispro (HumaLOG) 7 units TIDWMEALS SQ Last administered on 10/22/20at 08:16; Start 10/21/20 at 17:45 Apixaban (Eliquis) 5 mg BID PO Last administered on 10/22/20at 08:11; Start 10/21/20 at 21:00 Aspirin (Aspirin Enteric Coated) 81 mg DAILY PO Last administered on 10/22/20at 08:12; Start 10/22/20 at 09:00 Calcium Carbonate/ Glycine (Oscal) 500 mg DAILY PO Last administered on 10/22/20at 08:10; Start 10/22/20 at 09:00 Diclofenac Sodium (Voltaren) 1 angie QID PRN TP MUSCLE PAIN; Start 10/21/20 at 19:00 Empaglifozin (Jardiance) 10 mg DAILY PO Last administered on 10/22/20at 08:10; Start 10/22/20 at 09:00 Febuxostat (Uloric) 40 mg DAILY PO Last administered on 10/22/20at 08:17; Start 10/22/20 at 09:00 Fentanyl (Duragesic 25mcg/ Hr) 1 patch Q3DAYS PRN TD PAIN; Start 10/21/20 at 20:00; Stop 10/22/20 at 07:33; Status DC Furosemide (Lasix) 40 mg DAILY PO Last administered on 10/22/20at 08:12; Start 10/22/20 at 09:00 Isosorbide Mononitrate (Imdur) 30 mg DAILY PO Last administered on 10/22/20at 08:10; Start 10/22/20 at 09:00 Losartan Potassium (Cozaar) 50 mg DAILY PO Last administered on 10/22/20at 08 :11; Start 10/22/20 at 09:00 Metoprolol Succinate (Toprol Xl) 50 mg DAILY PO Last administered on 10/22/20at 08:17; Start 10/22/20 at 09:00 Nitroglycerin (Nitrostat) 0.4 mg PRN Q5MIN PRN SL CHEST PAIN; Start 10/21/20 at 19:00 Potassium Chloride (Klor-Con) 20 meq DAILY PO Last administered on 10/22/20at 08:12; Start 10/22/20 at 09:00 Prednisone (Prednisone) 10 mg DAILY PO Last administered on 10/22/20at 08:11; Start 10/22/20 at 09:00 Tacrolimus (Prograf) 1 mg BID PO Last administered on 10/22/20at 08:11; Start 10/21/20 at 21:00 Tramadol HCl (Ultram) 50 mg PRN QHS PRN PO MILD-MOD PAIN Last administered on 10/21/20at 21:13; Start 10/21/20 at 19:00 Triamcinolone Acetonide (Kenalog) 1 angie BID TP Last administered on 10/22/20at 08:17; Start 10/21/20 at 21:00 Non-Formulary Medication (Insulin Detemir (Levemir)) 12 unit QHS SQ ; Start 10/21/20 at 21:00; Status UNV Non-Formulary Medication (Insulin Lispro (Humalog)) 7 unit TIDWMEALS SQ ; Start 10/22/20 at 08:00; Status UNV Magnesium Oxide (Magnesium Oxide) 400 mg DAILY PO Last administered on 10/22/20at 08:13; Start 10/22/20 at 09:00 Multivitamins/ Calcium (Thera-M Plus) 1 tab DAILY PO Last administered on 10/22/20at 08:11; Start 10/22/20 at 09:00 Mycophenolate Mofetil (Cellcept) 1,000 mg BID PO Last administered on 10/22/20at 08:13; Start 10/21/20 at 21:00 Pantoprazole Sodium (Protonix) 40 mg DAILY PO Last administered on 10/22/20at 08:12; Start 10/22/20 at 09:00 Atorvastatin Calcium (Lipitor) 20 mg DAILY PO Last administered on 10/22/20at 08:11; Start 10/22/20 at 09:00 Fentanyl (Duragesic 25mcg/ Hr) 1 patch PRN Q72HRS PRN TD SEVERE PAIN; Start 10/22/20 at 07:45 Active Scripts Active Reported Uloric (Febuxostat) 40 Mg Tablet 1 Tab PO DAILY 30 Days Triamcinolone Acetonide 0.1% Oint (Triamcinolone Acetonide) 15 Gm Oint...g. 1 Angie TP BID Tramadol Hcl (Tramadol HCl) 50 Mg Tablet 50 Mg PO PRN QHS PRN Tart Kelly Capsule (Vit C/Kelly & Celery Ex/Grp E) 1 Each Capsule 1 Each PO DAILY Crestor (Rosuvastatin Calcium) 5 Mg Tablet 1 Tab PO DAILY Potassium Chloride (Potassium Chloride) 20 Meq Tablet.er 20 Meq PO DAILY Omeprazole 40 Mg Capsule.dr 1 Cap PO DAILY Nitrostat (Nitroglycerin) 0.4 Mg Tab.subl 0.4 Mg SL PRN Q5MIN PRN Multi Vitamin Daily (Multivitamin) 1 Each Tablet 1 Tab PO DAILY 30 Days Metoprolol Succinate ( Xl ) (Metoprolol Succinate) 50 Mg Tab.er.24h 1 Tab PO DAILY Magnesium Oxide 400 Mg Tablet 1 Tab PO DAILY 30 Days Cozaar (Losartan Potassium) 50 Mg Tablet 50 Mg PO DAILY Ketoconazole 120 Ml Shampoo 1 Angie TP TWICE WEEKLY 30 Days with at least 3 days between each shampooing Jardiance (Empagliflozin) 10 Mg Tablet 10 Mg PO DAILY Isosorbide Mononitrate Er (Isosorbide Mononitrate) 30 Mg Tab.er.24h 1 Tab PO DAILY Lasix (Furosemide) 40 Mg Tablet 1 Tab PO DAILY 30 Days Fluocinonide 15 Gm Cream..g. 1 Angie TP BID PRN FENTANYL 25mcg/hr (Fentanyl) 1 Each Patch.td72 1 Patch TP Q3DAYS PRN Eliquis (Apixaban) 5 Mg Tablet 5 Mg PO BID Diclofenac Sodium 100 Gm Gel..gram. 1 Angie TP QID PRN 21 Days Cleocin T (Clindamycin Phosphate) 60 Ml Lotion 1 Angie TP BID Prednisone 10 Mg Tablet 10 Mg PO DAILY Levemir (Insulin Detemir) 100 Unit/1 Ml Vial 12 Unit SQ QHS Humalog (Insulin Lispro) 100 Unit/1 Ml Vial 0 SQ TIDACHC Humalog (Insulin Lispro) 100 Unit/1 Ml Vial 7 Unit SQ TIDWMEALS D3-2000 (Cholecalciferol (Vitamin D3)) 2,000 Unit Capsule 1,000 Unit PO DAILY Oyster Shell Calcium (Calcium Carbonate) 500 Mg Tablet 500 Mg PO DAILY Tacrolimus 0.5 Mg Capsule 1 Mg PO BID Aspir 81 (Aspirin) 81 Mg Tablet.dr 81 Mg PO DAILY Mycophenolate Mofetil 500 Mg Tablet 1,000 Mg PO BID ALLERGIES Allergies: Coded Allergies: ciprofloxacin (Verified Allergy, Intermediate, RASH, 08/12/13) ROS Review of Systems 14 point ROS conducted with pertinent positives noted above in HPI PHYSICAL EXAM General: Alert, Oriented X3, Cooperative, mild distress HEENT: Atraumatic Lungs: Clear to auscultation Heart: Other (IRRR; tele AFIB ) Abdomen: Soft, Other (obese) Extremities: No edema Skin: No breakdown Neuro: Normal speech, Sensation intact Psych/Mental Status: Mental status NL, Mood NL MUSCULOSKELETAL: Osteoarthritic changes both hands VITALS Vital Signs Vital Signs Date Time Temp Pulse Resp B/P (MAP) Pulse Ox O2 Delivery O2 Flow Rate FiO2 10/22/20 08:17 66 114/66 10/22/20 05:43 20 95 Room Air 10/21/20 17:59 97.3 LABS LABS Laboratory Tests Test 10/21/20 14:23 10/21/20 14:44 10/21/20 17:36 10/21/20 17:38 White Blood Count 8.8 x10^3/uL (4.0-11.0) Red Blood Count 5.08 x10^6/uL (4.30-5.70) Hemoglobin 14.1 g/dL (13.0-17.5) Hematocrit 43.1 % (39.0-53.0) Mean Corpuscular Volume 85 fL (79-100) Mean Corpuscular Hemoglobin 28 pg (25-35) Mean Corpuscular Hemoglobin Concent 33 g/dL (31-37) Red Cell Distribution Width 16.4 % (11.5-14.5) Platelet Count 94 x10^3/uL (140-400) Neutrophils (%) (Auto) 83 % (31-73) Lymphocytes (%) (Auto) 9 % (24-48) Monocytes (%) (Auto) 8 % (0-9) Eosinophils (%) (Auto) 0 % (0-3) Basophils (%) (Auto) 1 % (0-3) Neutrophils # (Auto) 7.3 x10^3uL (1.8-7.7) Lymphocytes # (Auto) 0.8 x10^3/uL (1.0-4.8) Monocytes # (Auto) 0.7 x10^3/uL (0.0-1.1) Eosinophils # (Auto) 0.0 x10^3/uL (0.0-0.7) Basophils # (Auto) 0.0 x10^3/uL (0.0-0.2) Sodium Level 140 mmol/L (136-145) Potassium Level 4.2 mmol/L (3.5-5.1) Chloride Level 103 mmol/L (98-107) Carbon Dioxide Level 28 mmol/L (21-32) Anion Gap 9 (6-14) Blood Urea Nitrogen 26 mg/dL (8-26) Creatinine 1.5 mg/dL (0.7-1.3) Estimated GFR (Cockcroft-Gault) 46.3 BUN/Creatinine Ratio 17 (6-20) Glucose Level 249 mg/dL (70-99) Calcium Level 8.7 mg/dL (8.5-10.1) Magnesium Level 2.0 mg/dL (1.8-2.4) Total Bilirubin 1.5 mg/dL (0.2-1.0) Aspartate Amino Transf (AST/SGOT) 36 U/L (15-37) Alanine Aminotransferase (ALT/SGPT) 43 U/L (16-63) Alkaline Phosphatase 196 U/L (46-116) Creatine Kinase 54 U/L (39-308) Creatine Kinase MB (Mass) 1.2 ng/mL (0.0-3.6) Creatine Kinase MB Relative Index 2.2 % (0-4) Troponin I Quantitative < 0.017 ng/mL (0-0.055) < 0.017 ng/mL (0-0.055) BL-Eau-O-Type Natriuretic Peptide 427 pg/mL (0-124) Total Protein 7.0 g/dL (6.4-8.2) Albumin 3.6 g/dL (3.4-5.0) Albumin/Globulin Ratio 1.1 (1.0-1.7) Lipase 163 U/L (73-393) Urine Collection Type Unknown Urine Color Nichole Urine Clarity Clear Urine pH 5.5 Urine Specific [place] 1.015 Urine Protein Neg (NEG-TRACE) Urine Glucose (UA) 500 mg/dL (NEG) Urine Ketones (Stick) Neg mg/dL (NEG) Urine Blood Neg (NEG) Urine Nitrite Neg (NEG) Urine Bilirubin Neg (NEG) Urine Urobilinogen Dipstick 0.2 mg/dL (0.2 mg/dL) Urine Leukocyte Esterase Neg (NEG) Urine RBC 0 /HPF (0-2) Urine WBC 0 /HPF (0-4) Urine Bacteria 0 /HPF (0-FEW) Glucose (Fingerstick) 152 mg/dL (70-99) Test 10/21/20 20:00 10/21/20 20:35 10/22/20 07:18 Glucose (Fingerstick) 180 mg/dL (70-99) 131 mg/dL (70-99) Troponin I Quantitative < 0.017 ng/mL (0-0.055) EKG EKG 08/04/19 - LONG-TERM TEACHERS ASSISTANT Interpretation Summary Zio patch monitor demonstrates: 1. The predominant underlying rhythm is sinus rhythm with rates ranging from 44 to 200 bpm -- average 75 bpm. 2. There were rare ventricular premature contractions (PVCs, 3,353 total, <1%) observed. There were 2 episodes of brief VT observed-- longest and fastest 8 beats at 200 bpm. 3. There were frequent supraventricular premature depolarizations (PACs, 122,308 total, 8.3%) observed. There was no SVT-- longest 53.6 seconds at 108 bpm, fastest 8 beats at 190 bpm. Review of the rhythm strips suggest an atrial tachycardia as the mechanism of the longest episode of SVT. 4. There were no significant pauses. 5. The patient submitted 4 patient triggered events and 2 diary entries. The patient triggered events correlated with premature atrial contractions and ventricular contractions. 6. There was no sustained atrial fibrillation or atrial flutter. Conclusions: [facility] Ambulatory ECG Monitoring for approximately 14 days is abnormal demonstrating: frequent symptomatic premature atrial contractions with a burden of 8.3%. There are rare premature ventricular contractions. There are episodes of sustained atrial tachycardia. There is no atrial flutter or atrial fibrillation noted on the monitor. No significant pauses. Overall the study is abnormal due to the burden of premature atrial contractions. The study remains low risk overall. INTRACARDIAC CATHETER ABLATION WITH COMPREHENSIVE ELECTROPHYSIOLOGIC EVALUATION - TYPICAL FLUTTER Study date: 03/17/19 IMPRESSION: Successful CTI-dependent Atrial Flutter ablation Intra-atrial pacing and intraventricular pacing. Burst pacing protocol with no inducible arrhythmias. PLAN: - Sheaths to be removed in recovery - Continue anticoagulation with Eliquis - Rate control: Discontinue Diltiazem - Continue: Metoprolol. - Rhythm control medication: None - Outpatient follow up in 3 months Caleb Smith MD Cardiovascular Electrophysiology ECHOCARDIOGRAM Echocardiogram 10/16/20 - 2D + DOPPLER ECHO Interpretation Summary Left Ventricle: The left ventricular size is normal. Mild concentric hypertrophy. The left ventricular systolic function is normal. The ejection fraction by Whittington's biplane method is 65%. There are no segmental wall motion abnormalities. Grade II (moderate) left ventricular diastolic dysfunction. Unable to assess left atrial pressure. Right Ventricle: The right ventricle is mildly dilated. The right ventricular systolic function is normal. Left Atrium: Severely dilated. Right Atrium: Moderately dilated. Mitral Valve: Mild stenosis. Trace regurgitation. There is severe mitral annular calcification. Aortic Valve: There is a 23 mm CoreValve bioprosthetic valve present. Elevated peak velocity of 3.5 m/s, mean gradient of 28 mmHg, both mildly overestimating stenosis due to LVOT flow acceleration, the dimensionless index 0.43 (<25 is severe )and the acceleration time is within acceptable limits of < 100 milliseconds.when compared to prior study dated 08/04/2019 the DI was 0.55 and mean gradient of 11 millimeters mercury with a peak velocity of 2.5 m/s, however had frequent ectopy. Estimated Peak Systolic PA Pressure 46 mmHg HEART CATH Heart Cath He had an angiogram done in 2019 that showed a patent LAD stent with a jailed diagonal branch with an ostial 70% lesion. The RCA stent was patent. The stent previously placed in the marginal branch of the RCA was occluded. The LV systolic function has been normal. He has had right femoropopliteal bypass. ASSESSMENT/PLAN Assessment/Plan 1. Chest pain, mixed features; AMI ruled out. resolved with nitro 2. PAFIB/flutter s/p ablation 04/03. presenting in AFIB. rate now controlled. chronic OAC with Eliquis 3. CAD s/p PCI multiple stents. negative stress test in April 2018. catheterization in November 2018 showed patent stents, jailed diagonal branch with an ostial 70% lesion. LV systolic function has been normal. Follow with Dr. Juares of [facility] 4. Chronic systolic CHF; appears compensated 5. Hypertension; controlled 6. Hyperlipidemia; statin 7. Diabetes, II 8. CKD; stable 9. s/p TAVR 08/26 10. PAD s/p right femoropopliteal bypass. 11. Cirrhosis s/p liver transplant; on Tacrolimus Recommendations Resume secondary prevention including ASA, statin, imdur Metoprolol for rate control Hold Eliquis for cath Given symptomatology and significant history/risk factors, will proceed with further ischemic evaluation with left heart cath. R/b/a discussed and patient is agreeable Rapid COVID Will transfer to [facility] for [facility] Supportive care SANTANA PARRA MD 10/23/20 2778: CARDIAC CONSULT ASSESSMENT/PLAN Assessment/Plan Patient seen and examined. Agree with PORTFOLIO LEAD's assessment and plan. CP in patient with known CAD with features concerning for unstable angina PAF s/p ablation presently with AF, rate controlled. Continue eliquis for stroke prophylaxis Plan transfer to [facility] for cath and possible PCI. Risks and benefits explained. s/p TAVR clinically stable Thank you for your consultation TAL KAUFFMAN APRN Oct 22, 2020 08:22 SANTANA PARRA MD Oct 23, 2020 23:48
[2020-10-22] MEDS ORDERED: ATORVASTATIN CALCIUM 20 MG TABLET PO SCH (09:00)
--- NOTE | 2020-10-22 09:30 | NUR ---
PT REPORTS CHEST PAIN TO DR WHITFIELD DURING ROUNDS. NTG X 1 DOSE GIVEN SL. ORDERS FOR CARDIAC LABS ET EKG REC'D. PT REPORTS IMMEDIATE RELIEF FROM 5/10, TO 2/10 ON THE CHEST PAIN. NO ADDITIONAL DOSES GIVEN.
--- NOTE | 2020-10-22 09:36 | EKG ---
[address] [address] Test Date: 2020-10-22 Test Time: 09:25:06 Pat Name: STACI HALEY Department: Room: 105 A Gender: M Home Health Rn: : 1950 Requested By: YVES WHITFIELD Order Number: [id number] Reading MD: Measurements Intervals [place] Rate: 90 P: VT: QRS: -17 QRSD: 98 T: 66 QT: 384 QTc: 474 Interpretive Statements IRREGULAR RHYTHM, NO P-WAVE FOUND LEFTWARD AXIS T ABNORMALITY IN HIGH LATERAL LEADS PROLONGED QT ABNORMAL ECG RI6.01 No previous ECG available for comparison
[2020-10-22 09:52] LABS: MAGNESIUM 1.8 mg/dL (1.8-2.4); POTASSIUM 3.6 mmol/L (3.5-5.1)
--- NOTE | 2020-10-22 15:54 | HP ---
ADMIT DATE: 10/21/2020 HISTORY OF PRESENT ILLNESS: A 70-year-old gentleman with long history of multiple cardiac problems. The patient has a history of prior [place], valve replacement, presents also with stent placements. In any case, the patient has been having some intermittent chest discomfort as well as dyspnea on exertion as well as being diaphoretic as well as having severe palpitations in his chest. The patient came in through the Emergency Room, was found to have atrial fibrillation with rapid ventricular response and was placed on a Cardizem drip. Otherwise, he was admitted to the hospital for further evaluation. He is also currently on Eliquis and aspirin and sees Dr. 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 The patient, however, began to have further chest pain the morning after his admission and was noted to have problems that were relieved with the nitroglycerin and as a result of this will be transferred down to [facility] for further evaluation by Pulmonology there. PAST MEDICAL HISTORY: Peripheral neuropathy; numbness; atrial fibrillation with ablation; CHF; peripheral vascular disease; aortic pig valve replacement; coronary artery disease graft, chronic Eliquis; hypertension; sleep apnea, CPAP; liver transplant; obesity; on immunosuppressive therapy; GERD, reflux; renal disease; gout; joint replacement, right total knee; diabetes and pneumococcal and COVID-19 vaccines up to date. ALLERGIES: CIPRO. FAMILY HISTORY: Father and mother both of unknown causes. SOCIAL HISTORY: The patient has distant history of smoking, has not smoked for number of years. Occasional alcohol use, but minimal and no hard drug use. The patient is a FULL CODE. REVIEW OF SYSTEMS: Mild headache, no visual changes. Does have chest pain at rest. The patient also has shortness of breath, diaphoresis, and mild nausea, but no vomiting, some epigastric discomfort. No problem with bowels or bladder. Neurologically, the patient was alert and oriented x 3. PHYSICAL EXAMINATION: GENERAL: The patient otherwise on exam is a pleasant white male, looking stated age. VITAL SIGNS: Blood pressure went down as low as 94/47; pulse 72, although at times has been approximately 110; oxygen saturation 94%; respiratory rates in the low 20s. HEENT: The patient's head was atraumatic, normocephalic. Eyes: PERRLA without jaundice. The mouth and throat were normal. NECK: Supple, without JVD or carotid bruits. No thyromegaly. LUNGS: Diminished throughout, poor movement of air. CARDIOVASCULAR: Irregularly irregular rhythm. ABDOMEN: Soft, protuberant, nontender. No rebounding or guarding. Positive bowel sounds. EXTREMITIES: No clubbing, cyanosis or edema. NEUROLOGIC: The patient alert and oriented. Speech fluent, spontaneous, appropriate. Cranial nerves 2-12 grossly intact. Recent 2D Doppler echo done at Dr. Juares's office shows good ejection fraction 65%, mild concentric hypertrophy. The patient otherwise would be monitored carefully. LABORATORY DATA: The patient's labs, however, show a decreased platelet count of 94. Hemoglobin and hematocrit 14 and 43. The patient's chemistries: Sodium 140, potassium 3.6, BUN and creatinine 26 and 1.5. Blood sugar 250. A1c not obtained. BNP 427. Cardiac enzymes negative. The patient otherwise will be monitored carefully, on that EKG shows lack of P-wave, probable atrial fib. Chest x-ray shows possibility of congestive heart failure. IMPRESSION: Unstable angina, history of coronary artery disease, history of pig valve replacement, type 2 diabetes, morbid obesity, [id number] of chronic diastolic heart failure, thrombocytopenia, history of liver transplant, on immunosuppressive therapy. MEDICATIONS: Include Eliquis 5 mg b.i.d., Crestor 5, isosorbide mononitrate ER 30, nitroglycerin, metoprolol succinate 50, losartan 50 mg daily, aspirin 81, diclofenac sodium gel, fentanyl 1 patch 25 mcg for chronic pain, tramadol 50 mg q. 6 p.r.n., calcium carbonate, potassium chloride, furosemide 40 mg a day, magnesium oxide, Prilosec, prednisone 10, insulin Levemir 12 units at bedtime, Humalog 7 units with meals 3 times a day, Jardiance 10 mg a day, clindamycin, Cleocin T lotion, fluticasone, triamcinolone, calcium and vitamin D, Uloric 40 mg a day for gout, hyperuricemia, multivitamin, tacrolimus immunosuppressant, mycophenolate mofetil 500 mg for immunosuppression and vitamins. ALLERGY TO CIPRO INDICATED. ASSESSMENT AND PLAN: The patient was admitted and placed on Cardizem drip initially in the ICU, but converted to sinus rhythm, transferred to the floor, began to have more chest pain, was given nitroglycerin with good relief. The patient was seen by Cardiology, and the patient was determined that the best course would be for him to be transferred down to . They were on diversion, so he consented to go to [place] for further evaluation and treatment thereof. TARA/KHOI/MELY DR: TARA/frida TID: [id number]
[2020-10-22] MEDS: traMADol 50 MG TABLET PO PRN ×2 (16:21→22:34)
[2020-10-22] MEDS: INSULIN GLARGINE SYRINGE. SQ SCH (21:53)
[2020-10-23 00:01] VITALS: BP 99/59
[2020-10-23 05:42] VITALS: BP 114/57
--- NOTE | 2020-10-23 07:27 | EKG ---
[address] [address] Test Date: 2020-10-23 Test Time: 06:28:11 Pat Name: STACI HALEY Department: Room: 105 A Gender: M [place]: : 1950 Requested By: YVES WHITFIELD Order Number: [id number] Reading MD: Measurements Intervals [place] Rate: 77 P: VT: QRS: 24 QRSD: 102 T: 35 QT: 416 QTc: 473 Interpretive Statements IRREGULAR RHYTHM, NO P-WAVE FOUND LOW LIMB LEAD VOLTAGE PROLONGED QT NO SPECIFIC ECG ABNORMALITIES RI6.01 No previous ECG available for comparison
[2020-10-23] MEDS: INSULIN LISPRO 300 UNITS/3 ML VIAL. SQ SCH ×2 (08:00→08:29)
[2020-10-23] MEDS: ASPIRIN ENTERIC COATED 81 MG TABLET.DR. PO SCH (08:10)
[2020-10-23] MEDS: LOSARTAN 50 MG TABLET. PO SCH (08:10)
[2020-10-23] MEDS: CALCIUM CARBONATE 500 MG TABLET PO SCH (08:11)
[2020-10-23] MEDS: MAGNESIUM OXIDE 400 MG TABLET PO SCH (08:11)
[2020-10-23] MEDS: FUROSEMIDE 40 MG TABLET PO SCH (08:11)
[2020-10-23] MEDS: predniSONE 10 MG TABLET. PO SCH (08:12)
[2020-10-23] MEDS: ISOSORBIDE MONONITRATE ER 30 MG TAB.ER.24H PO SCH (08:12)
[2020-10-23] MEDS: POTASSIUM CHLORIDE 20 MEQ TABLET.ER. PO SCH (08:12)
[2020-10-23] MEDS: PANTOPRAZOLE 40 MG TABLET. PO SCH (08:12)
[2020-10-23] MEDS: METOPROLOL SUCC 24HR ER 50 MG TAB.ER.24H. PO SCH (08:13)
[2020-10-23] MEDS: MULTIVITAMIN with MINERAL TABLET. PO SCH (08:13)
[2020-10-23] MEDS: EMPAGLIFLOZIN 10 MG TABLET. PO SCH (08:14)
[2020-10-23] MEDS: MYCOPHENOLATE MOFETIL 250 MG CAPSULE PO SCH (08:14)
[2020-10-23] MEDS: FEBUXOSTAT 40 MG TABLET PO SCH (08:15)
[2020-10-23] MEDS: TACROLIMUS 1 MG CAPSULE PO SCH (08:26)
[2020-10-23] MEDS: TRIAMCINOLONE ACETONIDE 0.1% TOPICAL OINTMENT 15GM TUBE. TP SCH (08:40)
[2020-10-23 08:57] VITALS: BP 116/68
[2020-10-23] MEDS ORDERED: ATORVASTATIN CALCIUM 20 MG TABLET PO SCH (09:00)
--- NOTE | 2020-10-23 09:29 | NUR ---
Nursing Note Discharge Pt taken via gurney by EMS to [facility] for cardiac catheterization at 11am. Pt stable, A&O x 4.
--- NOTE | 2020-10-24 00:10 | DS ---
DATE OF DISCHARGE: 10/23/2020 HOSPITAL COURSE: A 70-year-old gentleman came in with increased shortness of breath as well as some chest pain he was having at rest. He has a long medical history of coronary artery disease, stent placements and valve replacements. The patient began to experience chest pain while in bed and was given nitroglycerin. The patient also was seen by Cardiology. He had atrial fibrillation with rapid ventricular response, placed on Cardizem drip initially in the ICU, converted into sinus rhythm and then was transferred to the floor. The patient otherwise made excellent progress, but because of his increased chest pain, the patient was transferred down to [place] for further evaluation and treatment. His CBC was normal except for low platelets of 94,000. Blood sugars were elevated 150 and 200s. BNP 400. Cardiac enzymes were negative. Creatinine was 1.5. Serology was negative for COVID. UA was unremarkable. Chest x-ray showed possibility of congestive heart failure. In any case, the patient was stable here and was transferred down to [place] for further cardiology evaluation. IMPRESSION: Acute on top chronic congestive heart failure, unstable angina, obesity, type 2 diabetes, history of peripheral vascular disease, aortic valve replacement, chronic Eliquis therapy, sleep apnea, CPAP. The patient continued to be monitored and transferred down to the facility at [place]. TARA/MIGUELINA/TERA DR: TARA/frida TID: [id number]
== END 2020-10-23 09:32 | disposition short-term general hospital (02) | DRG 291 ==
LOC: ER 14:05 → ICU 16:00 → 1 SOUTH 10-22 06:21
PROVIDERS: ADMIT Family Medicine; ATTEND Family Medicine
DX: I13.0 Hypertensive heart and chronic kidney disease with heart failure and stage 1 through stage 4 chronic kidney disease, or unspecified chronic kidney disease (principal); I50.43 Acute on chronic combined systolic (congestive) and diastolic (congestive) heart failure; Z94.4 Liver transplant status; I25.110 Atherosclerotic heart disease of native coronary artery with unstable angina pectoris; I48.0 Paroxysmal atrial fibrillation; E78.00 Pure hypercholesterolemia, unspecified; I25.2 Old myocardial infarction; Z96.651 Presence of right artificial knee joint; Z20.822 Contact with and (suspected) exposure to COVID-19; E11.42 Type 2 diabetes mellitus with diabetic polyneuropathy; E11.22 Type 2 diabetes mellitus with diabetic chronic kidney disease; E11.51 Type 2 diabetes mellitus with diabetic peripheral angiopathy without gangrene; K21.9 Gastro-esophageal reflux disease without esophagitis; E66.01 Morbid (severe) obesity due to excess calories; G47.33 Obstructive sleep apnea (adult) (pediatric); M19.90 Unspecified osteoarthritis, unspecified site; M10.9 Gout, unspecified; D69.6 Thrombocytopenia, unspecified; E78.5 Hyperlipidemia, unspecified; I35.0 Nonrheumatic aortic (valve) stenosis; K74.60 Unspecified cirrhosis of liver; N18.9 Chronic kidney disease, unspecified; Z90.49 Acquired absence of other specified parts of digestive tract; Z95.5 Presence of coronary angioplasty implant and graft; Z95.3 Presence of xenogenic heart valve; Z87.891 Personal history of nicotine dependence; Z82.49 Family history of ischemic heart disease and other diseases of the circulatory system; Z79.01 Long term (current) use of anticoagulants; Z88.1 Allergy status to other antibiotic agents; Z68.36 Body mass index [BMI] 36.0-36.9, adult
CPT/HCPCS: 36415; 71045; 80053; 80061; 81001; 82550; 82553; 82947; 83690; 83735; 83880; 84132; 84484; 85025; 87426; 93005; 96374; J1815; J3490; J7507; J7512; J7517; U0003; 99291-25

== ENCOUNTER → 2020-11-20 | Outpatient (CLI) | payer MEDICARE, OTHER ==
[2020-10-23 08:57] VITALS: BP 116/68
[~2020-11-20] MED LIST changes: +APIX5TAB3 PO; +CLIN60LO TP; +CRESTOR5 MG PO; +DICL100G28 TP; +EMPA10TA PO; +FENT1PAT15 TP; +FLUO15CR TP; +FURO-68 PO; +INSU100V SQ; +INSU100V13 SQ; +ISOS30TA68 PO; +KETO120S4 TP; +LOSA50TA86 PO; +MAGN400T44 PO; +METO50TA29 PO; +MULT-245 PO; +NITR0.4T24 SL; +OMEP40CA7 PO; +POTA20TA4 PO; +PRED-220 PO; +TRIA15OI TP; +VIT1CAPS7 PO
[2020-11-20 09:56] LABS: BASO % 1 % (0-3); EOS # 0.1 x10^3/uL (0.0-0.7); EOS % 2 % (0-3); HEMATOCRIT 43.6 % (39.0-53.0); HEMOGLOBIN 14.1 g/dL (13.0-17.5); LYMPH % 16 % (24-48); MEAN CORPUSCULAR HEMOGLOBIN 27 pg (25-35); MEAN CORPUSCULAR HGB CONC 32 g/dL (31-37); MEAN CORPUSCULAR VOLUME 83 fL (79-100); MONO # 0.6 x10^3/uL (0.0-1.1); MONO % 10 % (0-9); NEUT # 4.6 x10^3uL (1.8-7.7); NEUT % 72 % (31-73); PLATELET COUNT 103 x10^3/uL (140-400); RED BLOOD COUNT 5.25 x10^6/uL (4.30-5.70); RED CELL DISTRIBUTION WIDTH 15.5 % (11.5-14.5); WHITE BLOOD COUNT 6.4 x10^3/uL (4.0-11.0)
[2020-11-20 10:13] LABS: ALBUMIN 3.7 g/dL (3.4-5.0); ALBUMIN/GLOBULIN RATIO 0.9 (1.0-1.7); CALCIUM 8.8 mg/dL (8.5-10.1); GFR 73.9; MAGNESIUM 2.1 mg/dL (1.8-2.4); POTASSIUM 3.6 mmol/L (3.5-5.1); TOTAL BILIRUBIN 1.4 mg/dL (0.2-1.0); TOTAL PROTEIN 7.6 g/dL (6.4-8.2)
== END ==
LOC: LAB 09:14
PROVIDERS: ATTEND Internal Medicine Gastroenterology
DX: Z79.899 Other long term (current) drug therapy (principal); Z94.4 Liver transplant status
CPT/HCPCS: 36415; 80053; 80197; 83735; 85025

== ENCOUNTER → 2020-12-19 | Outpatient (CLI) | payer MEDICARE, OTHER ==
[~2020-12-19] MED LIST changes: -TRIA15OI TP; +TRIA15OI32 TP
[2020-12-19 10:13] LABS: BASO % 1 % (0-3); EOS # 0.1 x10^3/uL (0.0-0.7); EOS % 2 % (0-3); HEMATOCRIT 42.3 % (39.0-53.0); HEMOGLOBIN 13.7 g/dL (13.0-17.5); LYMPH # 0.9 x10^3/uL (1.0-4.8); LYMPH % 16 % (24-48); MEAN CORPUSCULAR HEMOGLOBIN 27 pg (25-35); MEAN CORPUSCULAR HGB CONC 32 g/dL (31-37); MEAN CORPUSCULAR VOLUME 84 fL (79-100); MONO # 0.5 x10^3/uL (0.0-1.1); MONO % 9 % (0-9); NEUT # 3.9 x10^3uL (1.8-7.7); NEUT % 72 % (31-73); PLATELET COUNT 85 x10^3/uL (140-400); RED BLOOD COUNT 5.07 x10^6/uL (4.30-5.70); RED CELL DISTRIBUTION WIDTH 16.2 % (11.5-14.5); WHITE BLOOD COUNT 5.4 x10^3/uL (4.0-11.0)
[2020-12-19 10:37] LABS: ALBUMIN 3.5 g/dL (3.4-5.0); ALBUMIN/GLOBULIN RATIO 0.9 (1.0-1.7); CREATININE 0.9 mg/dL (0.7-1.3); GFR 83.4; POTASSIUM 3.7 mmol/L (3.5-5.1); TOTAL BILIRUBIN 0.9 mg/dL (0.2-1.0); TOTAL PROTEIN 7.5 g/dL (6.4-8.2)
== END ==
LOC: LAB 09:11
PROVIDERS: ATTEND Internal Medicine Gastroenterology
DX: Z20.822 Contact with and (suspected) exposure to COVID-19 (principal)
CPT/HCPCS: 36415; 80053; 80197; 83735; 85025

== ENCOUNTER → 2021-03-17 | Outpatient (CLI) | payer MEDICARE, OTHER ==
[2021-03-17 10:08] LABS: BASO % 1 % (0-3); EOS # 0.1 x10^3/uL (0.0-0.7); EOS % 1 % (0-3); HEMATOCRIT 40.1 % (39.0-53.0); HEMOGLOBIN 12.9 g/dL (13.0-17.5); LYMPH # 1.3 x10^3/uL (1.0-4.8); LYMPH % 16 % (24-48); MEAN CORPUSCULAR HEMOGLOBIN 27 pg (25-35); MEAN CORPUSCULAR HGB CONC 32 g/dL (31-37); MEAN CORPUSCULAR VOLUME 84 fL (79-100); MONO # 0.6 x10^3/uL (0.0-1.1); MONO % 8 % (0-9); NEUT # 5.8 x10^3uL (1.8-7.7); NEUT % 74 % (31-73); PLATELET COUNT 102 x10^3/uL (140-400); RED BLOOD COUNT 4.75 x10^6/uL (4.30-5.70); RED CELL DISTRIBUTION WIDTH 16.6 % (11.5-14.5); WHITE BLOOD COUNT 7.8 x10^3/uL (4.0-11.0)
[2021-03-17 10:17] LABS: ALBUMIN 3.2 g/dL (3.4-5.0); ALBUMIN/GLOBULIN RATIO 0.9 (1.0-1.7); CALCIUM 8.2 mg/dL (8.5-10.1); CREATININE 1.2 mg/dL (0.7-1.3); GFR 59.9; MAGNESIUM 1.7 mg/dL (1.8-2.4); POTASSIUM 3.8 mmol/L (3.5-5.1); TOTAL BILIRUBIN 1.2 mg/dL (0.2-1.0); TOTAL PROTEIN 6.9 g/dL (6.4-8.2)
== END ==
LOC: LAB 08:34
PROVIDERS: ATTEND Internal Medicine Gastroenterology
DX: Z79.899 Other long term (current) drug therapy (principal); Z94.4 Liver transplant status
CPT/HCPCS: 80053; 80197; 83735; 85025

== ENCOUNTER → 2021-06-11 | Outpatient (CLI) | payer MEDICARE, OTHER ==
[~2021-06-11] MED LIST changes: -EMPA10TA PO; +EMPA10TA3 PO
--- NOTE | 2021-06-12 17:27 | RAD ---
Left lower extremity arterial duplex study to include bilateral ankle-brachial indices 06/11/2021 CLINICAL HISTORY: Nonhealing wound in the left leg. Hypertension. Smoking history. TECHNIQUE: Systolic pressures of both arms and ankles were obtained. Ratios were generated for ankle- brachial indices. Using a combination of real-time ultrasound imaging and color-flow and pulse Dopple r imaging techniques, duplex evaluation of the major arterial structures of the left lower extremity was performed. Multiple images were obtained. FINDINGS: The right ankle-brachial index is 0.9. The left ankle-brachial index is 0.9. This is consis tent with some arterial disease. Moderate atheromatous/atherosclerotic plaque formation is seen scatt ered throughout the major arterial structures of the left lower extremity. The left common femoral, p rofunda femoral and proximal and mid left superficial femoral arteries are triphasic. Monophasic shiv rial waveforms are seen involving the left superficial femoral, popliteal, posterior tibial, anterior tibial and dorsalis pedis arteries. No hemodynamically significant stenosis is seen by ultrasound. T he mid/distal left posterior tibial arteries within the left peroneal arteries appear to be occluded. IMPRESSION: 1. The ankle-brachial indices are 0.9 consistent with some arterial disease. 2. Moderate atheromatous/atherosclerotic plaque formation is seen scattered throughout the major shiv rial structures of the left lower extremity. No hemodynamically significant stenosis is seen by ultra sound. The mid/distal left posterior tibial artery and the left peroneal artery appear to be occluded . Electronically signed by: Kodi Hinkle MD (06/12/2021 5:24 PM) [id number]
== END ==
LOC: US 07:59
PROVIDERS: ATTEND Emergency Medicine Undersea and Hyperbaric Medicine
DX: E11.621 Type 2 diabetes mellitus with foot ulcer (principal); L97.221 Non-pressure chronic ulcer of left calf limited to breakdown of skin; I87.002 Postthrombotic syndrome without complications of left lower extremity
CPT/HCPCS: 93923; 93926

== ENCOUNTER 2021-06-25 11:53 | Emergency (ER) | payer MEDICARE, OTHER ==
[~2021-06-25] VITALS: Ht 180.3 cm; Wt 119.5 kg
--- NOTE | 2021-06-25 11:55 | PHYS DOC ---
Past History Past Medical History: A-Fib, CAD, COPD, High Cholesterol, Hypertension, [place], Other Past Surgical History: Appendectomy, Knee Replacement, Other Additional Past Surgical Histo: liver transplant, Heart valves Smoking: Non-smoker, Quit Greater Than 1 Year Alcohol Use: None Drug Use: None General Adult HPI: HPI: Patient is a 70-year-old male who is here with report of progressively worsening shortness of breath. He has had symptoms for "a while." He is unable to articulate any specific details of exactly how long he has felt dyspneic. He reports that symptoms became acutely worse today. He reports some mild chest tightness but no chest pain. He reports symptoms of severe orthopnea. Dyspnea with exertion also reported. He denies cough or hemoptysis. He has chronic atrial fibrillation, reportedly is compliant with medications including Eliquis. He reports feeling poorly in general. He is febrile on arrival, he was unaware of this. He is currently being treated for wound infection and lower extremity and foot cellulitis. He was started on oral doxycycline just yesterday. He has only had 1 dose of this medication. He denies dizziness, diaphoresis, abdominal pain, nausea, vomiting. He denies fall, syncope or near syncope. Review of Systems: Review of Systems: Constitutional: Fever, malaise Eyes: Denies change in visual acuity HENT: Denies nasal congestion or sore throat Respiratory: Dyspnea. Denies cough or hemoptysis. Cardiovascular: Chest pressure chronic lower extremity edema. Denies syncope GI: Denies abdominal pain, nausea, vomiting or diarrhea : Denies any symptoms Musculoskeletal: Chronic lower extremity pain and swelling Integument: Bilateral lower extremity wounds, redness and swelling. Neurologic: Denies headache, focal weakness or sensory changes. Reports generalized, nonfocal weakness. Denies syncope. Endocrine: Denies polyuria or polydipsia. Hyperglycemia, poorly controlled diabetes. Lymphatic: Denies swollen glands Psychiatric: Anxiety Allergies: Allergies: Allergies Coded Allergies Type Severity Reaction Last Updated Verified ciprofloxacin Allergy Intermediate RASH 08/12/13 Yes Physical Exam: PE: Constitutional: Chronically ill-appearing male, in moderate respiratory distress. HENT: Normocephalic, atraumatic, oropharynx is patent and clear. No evidence of facial or trauma. Eyes: Sclera nonicteric, conjunctive are normal. Neck: Trachea is midline, no meningismus, no JVD Cardiovascular: Tachycardic, irregularly irregular. +2 radial pulses bilaterally. Lungs & Thorax: Moderate tachypnea. Speaks in full but brief sentences. No cyanosis. Diminished breath sounds in bilateral bases. Upper and midlung knox are clear without wheezing, rales, rhonchi or stridor. Abdomen: Abdomen is obese, soft, nondistended, nontender to palpation. No palpable pulsatile mass. Skin: Warm, dry. Chronic venous stasis changes bilateral lower extremities. He is superficial wounds and erythema of both lower extremities and ankles, right worse than left. No focal areas of fluctuance or spontaneous drainage Back: Mid range of motion, no deformity, no midline tenderness or step-offs. Extremities: Bilateral lower extremity 1+ pitting edema, bilateral lower extremity erythema, mild warmth, superficial wounds, no active or brisk purulent drainage or oozing, no bleeding. Diffuse bilateral anterior lower leg tenderness. No crepitus or subcutaneous emphysema. No acute deformity. Scarring and the skin grafts of the right lower extremity. Neurologic: Alert and oriented X 3, normal motor function, normal sensory function, no focal deficits noted. [] Psychologic: Anxious EKG: EKG: EKG is interpreted at 1213 Rhythm is atrial fibrillation with RVR Rate is 131 bpm [place] is left low voltage No STEMI Radiology/Procedures: Radiology/Procedures: IMAGING REPORT Signed PATIENT: STACI HALEY ACCOUNT: [id number] : 1950 LOCATION: ER AGE: 70 SEX: M EXAM STATUS: REG ER ORD. PHYSICIAN: DEVON JOHNSON DO REASON: dyspnea PROCEDURE: PORTABLE CHEST 1V EXAM: XR CHEST 1V 06/25/2021 12:17 PM CLINICAL INDICATION: Dyspnea COMPARISON: Chest radiograph 10/21/2020 TECHNIQUE: AP upright view of the chest FINDINGS: There are surgical changes of median sternotomy and probable TAVR. The heart is enlarged, unchanged. There are increased diffuse bilateral interstitial opacities and some alveolar opacities at the right base. No pleural effusion or pneumothorax. IMPRESSION: Increased diffuse bilateral opacities, which could be due to atypical infection or pulmonary edema. Electronically signed by: Eleanor Lennon MD (06/25/2021 12:59 PM) [id number] DICTATED AND SIGNED BY: ELEANOR LENNON MD DATE: 06/25/21 1250 CC: YVES WHITFIELD MD; DEVON JOHNSON DO ~ IMAGING REPORT Signed PATIENT: STACI HALEY ACCOUNT: [id number] : 1950 LOCATION: ER AGE: 70 SEX: M EXAM STATUS: REG ER ORD. PHYSICIAN: DEVON JOHNSON DO REASON: dyspnea, tachypnea, tachycardia, hypoxia-valve OMNI 350 100 ML PROCEDURE: CT ANGIOGRAPHY CHEST Examination: CT angiography chest with IV contrast HISTORY: History of dyspnea, tachycardia, tachypnea COMPARISON: 08/31/2014 TECHNIQUE: Axial CT angiographic images were performed with IV contrast. Coronal and Sagittal 3-D MIP reformats are performed Exposure: One or more of the following individualized dose reduction techniques were utilized for this examination: 1. Automated exposure control 2. Adjus tment of the mA and/or kV according to patient size 3. Use of iterative reconstruction technique FINDINGS: The visualized thyroid gland grossly appears unremarkable. The central airways are patent. Surgical changes identified in the aortic valve region. Moderate aortic atherosclerosis. Coronary artery calcifications. There is no evidence of filling defect identified in the main pulmonary arterial trunk and right and left main pulmonary arteries and the visualized lobar, segmental branches of pulmonary arteries. Small right pleural effusion. There are scattered airspace opacities identified in the bilateral lungs likely atelectasis or infiltrates. There is a 1.8 cm right apical lung nodule identified. Faint groundglass airspace opacities or nodules identified in the bilateral lungs. It is focal consolidation or atelectasis right lower lobe of the lung. Mild degree attenuation noted in the liver likely represents atelectasis. Partially visualized varices identified in the upper abdomen and about the gastroes ophageal junction. Moderate degenerative changes thoracic spine. IMPRESSION: 1. No evidence of pulmonary embolism. 2. 1.8 cm right apical lung nodule. Neoplasm is a primary consideration. Recommend PET/CT scan for better evaluation. 3. Faint groundglass airspace opacities or nodules identified in the bilateral lungs likely infiltrates or metastasis is not excluded.. There is focal consolidation or atelectasis right lower lobe of the lung likely pneumonia. Follow-up to resolution. Electronically signed by: Aurelio Abernathy MD (06/25/2021 1:56 PM) [id number] DICTATED AND SIGNED BY: AURELIO ABERNATHY MD DATE: 06/25/211346 CC: YVES WHITFIELD MD; DEVON JOHNSON DO ~ Heart Score: C/O Chest Pain: No Risk Factors: Risk Factors: DM, Current or recent (<one month) smoker, HTN, HLP, family history of CAD, obesity. Risk Scores: Score 0 - 3: 2.5% MACE over next 6 weeks - Discharge Home Score 4 - 6: 20.3% MACE over next 6 weeks - Admit for Clinical Observation Score 7 - 10: 72.7% MACE over next 6 weeks - Early Invasive Strategies Course & Med Decision Making: Course & Med Decision Making Pertinent Labs and Imaging studies reviewed. (See chart for details) The patient is placed on supplemental oxygen. He is hypoxic on room air. He reports that he wears 2 L per nasal cannula as needed at home. He does not wear this continuously on a regular basis. Oxygen saturation improved. He is given IV Lasix. P.o. Tylenol given for fever. I suspect fever may be from lower extremity cellulitis, for which he is already being treated with oral doxycycline. Pulmonary edema and pleural effusion noted on imaging studies. There is some concern for possible malignancy on CT angio of the chest. No PE is noted. Concern for right lower lobe infiltrate. IV Rocephin is ordered. He is given IV diltiazem for his atrial fibrillation. Rate markedly improved. He is already anticoagulated on Eliquis. He denies any chest pain or pressure, he reports feeling much better. I discussed the findings, differential diagnosis and plan of care with the patient. He [facility] transfer [facility] because that is where his field hand is located. He is accepted for admission by Dr. Geller at . Thelma Disclaimer: Thelma Disclaimer: This electronic medical record was generated, in whole or in part, using a voice recognition dictation system. Departure Departure: Impression: Primary Impression: Respiratory failure with hypoxia Qualified Codes: J96.91 - Respiratory failure, unspecified with hypoxia Additional Impressions: Atrial fibrillation with rapid ventricular response CHF exacerbation Qualified Codes: I50.9 - Heart failure, unspecified Right lower lobe pneumonia Qualified Codes: J18.9 - Pneumonia, unspecified organism Disposition: [facility] ([facility]) Condition: STABLE Referrals: YVES WHITFIELD MD (PCP) DEVON JOHNSON DO Jun 25, 2021 11:55
[2021-06-25] MEDS ORDERED: IV NORMAL SALINE 1,000ML 1,000 ML IV ONE (12:15)
[2021-06-25] MEDS ORDERED: ACETAMINOPHEN 500 MG TABLET PO ONE (12:15)
[2021-06-25] MEDS ORDERED: dilTIAZem 25 MG/5 ML VIAL IVP ONE (12:30)
[2021-06-25 12:32] LABS: BASO # 0.1 x10^3/uL (0.0-0.2); BASO % 1 % (0-3); EOS # 0.1 x10^3/uL (0.0-0.7); EOS % 1 % (0-3); HEMATOCRIT 41.5 % (39.0-53.0); HEMOGLOBIN 13.4 g/dL (13.0-17.5); LYMPH # 0.6 x10^3/uL (1.0-4.8); LYMPH % 6 % (24-48); MEAN CORPUSCULAR HEMOGLOBIN 27 pg (25-35); MEAN CORPUSCULAR HGB CONC 32 g/dL (31-37); MEAN CORPUSCULAR VOLUME 83 fL (79-100); MONO # 0.6 x10^3/uL (0.0-1.1); MONO % 7 % (0-9); NEUT # 7.5 x10^3uL (1.8-7.7); NEUT % 85 % (31-73); PLATELET COUNT 106 x10^3/uL (140-400); RED BLOOD COUNT 5.01 x10^6/uL (4.30-5.70); RED CELL DISTRIBUTION WIDTH 17.6 % (11.5-14.5); WHITE BLOOD COUNT 8.8 x10^3/uL (4.0-11.0)
[2021-06-25 12:44] LABS: CALCIUM 8.6 mg/dL (8.5-10.1); CREATININE 1.1 mg/dL (0.7-1.3); GFR 66.2
[2021-06-25 12:57] LABS: ALBUMIN 3.3 g/dL (3.4-5.0); ALBUMIN/GLOBULIN RATIO 0.8 (1.0-1.7); MAGNESIUM 1.6 mg/dL (1.8-2.4); PHOSPHORUS 3.1 mg/dL (2.6-4.7); TOTAL BILIRUBIN 2.2 mg/dL (0.2-1.0); TOTAL PROTEIN 7.5 g/dL (6.4-8.2)
--- NOTE | 2021-06-25 13:01 | RAD ---
EXAM: XR CHEST 1V 06/25/2021 12:17 PM CLINICAL INDICATION: Dyspnea COMPARISON: Chest radiograph 10/21/2020 TECHNIQUE: AP upright view of the chest FINDINGS: There are surgical changes of median sternotomy and probable TAVR. The heart is enlarged, unchanged. There are increased diffuse bilateral interstitial opacities and some alveolar opacities a t the right base. No pleural effusion or pneumothorax. IMPRESSION: Increased diffuse bilateral opacities, which could be due to atypical infection or pulmo nary edema. Electronically signed by: Eleanor Lennon MD (06/25/2021 12:59 PM) [id number]
[2021-06-25] MEDS ORDERED: FUROSEMIDE 40 MG/4 ML VIAL IVP ONE (13:15)
[2021-06-25] MEDS ORDERED: IOHEXOL 350 MG/ML 100 ML VIAL. IV ONE (13:30)
--- NOTE | 2021-06-25 13:59 | RAD ---
Examination: CT angiography chest with IV contrast HISTORY: History of dyspnea, tachycardia, tachypnea COMPARISON: 08/31/2014 TECHNIQUE: Axial CT angiographic images were performed with IV contrast. Coronal and Sagittal 3-D MIP reformats are performed Exposure: One or more of the following individualized dose reduction techniques were utilized for thi s examination: 1. Automated exposure control 2. Adjustment of the mA and/or kV according to patient size 3. Use of iterative reconstruction technique FINDINGS: The visualized thyroid gland grossly appears unremarkable. The central airways are patent. Surgical c hanges identified in the aortic valve region. Moderate aortic atherosclerosis. Coronary artery calcif ications. There is no evidence of filling defect identified in the main pulmonary arterial trunk and right and left main pulmonary arteries and the visualized lobar, segmental branches of pulmonary shiv esthela. Small right pleural effusion. There are scattered airspace opacities identified in the bilatera l lungs likely atelectasis or infiltrates. There is a 1.8 cm right apical lung nodule identified. Sukhdev nt groundglass airspace opacities or nodules identified in the bilateral lungs. It is focal consolida tion or atelectasis right lower lobe of the lung. Mild degree attenuation noted in the liver likely r epresents atelectasis. Partially visualized varices identified in the upper abdomen and about the gas troesophageal junction. Moderate degenerative changes thoracic spine. IMPRESSION: 1. No evidence of pulmonary embolism. 2. 1.8 cm right apical lung nodule. Neoplasm is a primary consideration. Recommend PET/CT scan for b melinda evaluation. 3. Faint groundglass airspace opacities or nodules identified in the bilateral lungs likely infiltra richie or metastasis is not excluded.. There is focal consolidation or atelectasis right lower lobe of t he lung likely pneumonia. Follow-up to resolution. Electronically signed by: Aurelio Pinon MD (06/25/2021 1:56 PM) [id number]
--- NOTE | 2021-06-25 14:26 | EKG ---
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
[2021-06-25 15:31] VITALS: BP 98/53
[2021-06-25] MEDS ORDERED: IV NORMAL SALINE 100ML 100 ML ONE (16:17)
[2021-06-25 16:38] LABS: INFLUENZA A PATIENT NEGATIVE (NEGATIVE); INFLUENZA B PATIENT NEGATIVE (NEGATIVE)
== END 2021-06-25 16:31 | disposition short-term general hospital (02) ==
LOC: ER 11:53
DX: J96.91 Respiratory failure, unspecified with hypoxia (principal); I48.20 Chronic atrial fibrillation, unspecified; I11.0 Hypertensive heart disease with heart failure; I50.9 Heart failure, unspecified; J18.1 Lobar pneumonia, unspecified organism; I25.10 Atherosclerotic heart disease of native coronary artery without angina pectoris; E78.00 Pure hypercholesterolemia, unspecified; J44.9 Chronic obstructive pulmonary disease, unspecified; I25.2 Old myocardial infarction; Z20.822 Contact with and (suspected) exposure to COVID-19; Z87.891 Personal history of nicotine dependence; Z88.1 Allergy status to other antibiotic agents
CPT/HCPCS: 36415; 71045; 71275; 80053; 82550; 83605; 83735; 83880; 84100; 84484; 85025; 87040; 87428; 93005; 96361; 96374; 96375; 99285; J0696; J1940; J3490; J7030

== ENCOUNTER → 2021-08-08 | Outpatient (CLI) | payer MEDICARE, OTHER ==
--- NOTE | 2021-08-08 10:31 | RAD ---
INDICATION: Reason: DVT per order;Bilat leg swelling per pt;RT Leg injury per pt / Spl. Instructions: / History: COMPARISON: Not available TECHNIQUE: Grayscale, color and doppler ultrasound images were obtained of the bilateral lower extrem ity venous vasculature. RIGHT: No thrombus identified in the common femoral vein, femoral vein, popliteal vein or visualized calf ve ins. LEFT: No thrombus identified in the common femoral vein, femoral vein, popliteal vein or visualized calf ve ins. IMPRESSION: * No thrombus identified in deep venous system of bilateral lower extremities. Electronically signed by: Herminio Juares MD (08/08/2021 10:29 AM) [id number]
== END ==
LOC: US 07:40
PROVIDERS: ATTEND Podiatrist Foot & Ankle Surgery
DX: I82.493 Acute embolism and thrombosis of other specified deep vein of lower extremity, bilateral (principal)
CPT/HCPCS: 93970